=== PATIENT | female | born 1990 | race Caucasian/White ===

== ENCOUNTER 2020-09-30 20:46 | Emergency (ER) | payer SELFPAY ==
[~2020-09-30] VITALS: Ht 167.6 cm; Wt 52.3 kg
[2020-09-30 20:55] VITALS: BP 114/81
[2020-09-30] MEDS ORDERED: HYDROcodone/APAP 5/325MG 1 TAB TABLET PO ONE (21:00)
--- NOTE | 2020-09-30 21:18 | PHYS DOC ---
General Adult EDM: Chief Complaint: HAND PROBLEM HPI: HPI: Patient is a 29-year-old female being seen in the ER today for a right hand injury. Patient reports that her great Justin's are running towards her and she moved her hand out of the way and hit it on the spindle of her bed. Patient is rating her pain 10 out of 10. No radiation of pain. She reports that most of her pain is located on the ulnar aspect of her right hand and wrist. Patient reports decreased range of motion due to pain. Patient denies any decreased sensation to extremity. (YAZ GARCIA APRN) Review of Systems: Review of Systems: 14 body systems of the review of systems have been reviewed. See HPI for pertinent positive and negative responses, otherwise all other systems are negative, nonpertinent or noncontributory (YAZ GARCIA APRN) Current Medications: Current Meds: Current Medications Medications (Trade) Dose Ordered Sig/Aliyah Start Time Stop Time Status Last Admin Dose Admin Acetaminophen/ Hydrocodone Bitart (Lortab 5/325) 1 tab 1X ONCE 09/30/20 21:00 09/30/20 21:07 DC (YAZ GARCIA APRN) Allergies: Allergies: Allergies Coded Allergies Type Severity Reaction Last Updated Verified No Known Drug Allergies 09/30/20 No (YAZ GARCIA APRN) Physical Exam: PE: Constitutional: Well developed, well nourished, no acute distress, non-toxic appearance. [] HENT: Normocephalic, atraumatic Eyes: PERRL, EOMI, conjunctiva normal, no discharge. [] Neck: Normal range of motion, no tenderness, supple, no stridor. [] Cardiovascular: Normal peripheral perfusion Lungs & Thorax: Normal work of breathing, no tachypnea Skin: Warm, dry, no erythema, no rash. [] Back: Normal range of motion Extremities: No tenderness, no cyanosis, no clubbing, ROM intact, no edema. Right hand: Swelling noted to the ulnar aspect of right hand, ecchymosis noted to the palmar aspect of right hand, decreased range of motion due to pain, neuro intact [] Neurologic: Alert and oriented X 3, normal motor function, normal sensory func tion, no focal deficits noted. [] Psychologic: Affect normal, judgement normal, mood normal. [] (YAZ GARCIA APRN) EKG: EKG: [] (YAZ GARCIA APRN) Radiology/Procedures: Radiology/Procedures: [] (YAZ GARCIA APRN) Radiology/Procedures: PROCEDURE: XR HAND_RIGHT 3 VIEWS, XR RT WRIST 3VIEWS History: Injury. Hand and wrist pain and swelling. Comparison: None. Technique: 3 views of the right hand. 3 views of the right wrist. Findings: Osseous mineralization is normal. There is a comminuted intra-articular fracture at the base of the fifth metacarpal. Mild apex dorsal angulation. No significant degenerative changes. Soft tissue swelling in the ulnar aspect of the hand. Impression: 1. Comminuted intra-articular fracture base of the fifth metacarpal. Electronically signed by: Mekhi Clay MD (09/30/2020 9:58 PM) [facility] (MELISA OLSEN DO) Heart Score: C/O Chest Pain: No Risk Factors: Risk Factors: DM, Current or recent (<one month) smoker, HTN, HLP, family history of CAD, obesity. Risk Scores: Score 0 - 3: 2.5% MACE over next 6 weeks - Discharge Home Score 4 - 6: 20.3% MACE over next 6 weeks - Admit for Clinical Observation Score 7 - 10: 72.7% MACE over next 6 weeks - Early Invasive Strategies (YAZ GARCIA APRN) Course & Med Decision Making: Course & Med Decision Making Pertinent Labs and Imaging studies reviewed. (See chart for details) Patient is a 29-year-old female being seen in the ER for right hand and wrist injury. An x-ray was performed of the wrist and hand and it showed right fifth metacarpal. Patient's hand placed in an ulnar gutter splint and sling applied. Patient neurovascularly intact pre and post splint placement. Patient tolerated splint placement procedure. Patient treated in the ER with pain medication. Patient advised to follow-up with an orthopedic doctor within the week. Patient advised to take Tylenol/ibuprofen for pain. Patient educated on the rice protocol. I discussed with patient all findings and diagnostic testing as well as the need to follow-up with PCP for further evaluation and treatment or return to the ER if any new or worsening symptoms. Strict return precautions were also discussed at length. Patient voiced understanding and agreement with the plan. Patient is hemodynamically stable at the time of disposition. (YAZ GARCIA APRN) Dragon Disclaimer: Dragon Disclaimer: This electronic medical record was generated, in whole or in part, using a voice recognition dictation system. (YAZ GARCIA APRN) Departure Departure: Impression: Primary Impression: Hand fracture, right Qualified Codes: S62.91XA - Unspecified fracture of right wrist and hand, initial encounter for closed fracture Disposition: HOME / SELF CARE / HOMELESS Condition: GOOD Referrals: PCP,NO (PCP) Patient Instructions: Hand Fracture, Metacarpals, RICE - Routine Care for Injuries Additional Instructions: You were seen in the ER today for a fracture or broken bone. You had a splint placed to help with pain and healing. You will need to follow-up with the orthopedic doctors in the orthopedic clinic as soon as possible. Please call an orthopedic doctor in the morning to set up a follow-up appointment. If you do not have a orthopedic doctor, you can always follow-up with orthopedic group at [facility]. You can call [phone] to set up an appointment. You should perform range of motion exercises to prevent stiffness of your joints. Splints help with the pain and can promote healing but immobility can cause chronic pain over time. Please refer to these attached instructions regarding range of motion exercises. Keep the splint clean and dry avoid getting it wet. If the splint gets wet you will need to have it replaced. You should use ice and elevation to help with the swelling and pain. For the first 24 hours apply ice 20 minutes on 20 minutes off 4 times per day. Ensure that ice is in a plastic bag as to not get the splint wet. You may take NSAID medications (Tylenol, ibuprofen, naproxen) to help with the pain. Please return to the emergency department if you develop any of the following symptoms: Increasing pain that does not improve with treatments. New numbness or tingling Warmth, redness, skin discoloration, skin breakdown, drainage from under splint or near splinted area. Increasing inability to move your extremity or digits. Foul odor coming from splint Fevers or chills Nausea or vomiting Persistent lightheadedness We would be happy to see you for any other concerning symptoms regarding your splinted extremity. Scripts Hydrocodone Bit/Acetaminophen (HYDROCODONE-APAP 5-325 ) 1 Each Tablet 1 TAB PO PRN Q6HRS PRN for PAIN for 2 Days, #8 TAB 0 Refills Prov: YZA GARCIA APRN 09/30/20 Attending Signature Attending Signature I have reviewed the PA/THERAPEUTIC MENTOR's note and plan of care. I was available for consultation as needed during the patient's visit in the emergency department. I agree with the clinical impression, plan, and disposition. (MELISA OLSEN DO) YAZ GARCIA APRN Sep 30, 2020 21:18 MELISA OLSEN DO Sep 30, 2020 22:07
[2020-09-30] MEDS ORDERED: HYDR-2155 PO (21:56)
--- NOTE | 2020-09-30 22:00 | RAD ---
XR HAND_RIGHT 3 VIEWS, XR RT WRIST 3VIEWS History: Injury. Hand and wrist pain and swelling. Comparison: None. Technique: 3 views of the right hand. 3 views of the right wrist. Findings: Osseous mineralization is normal. There is a comminuted intra-articular fracture at the base of the f ifth metacarpal. Mild apex dorsal angulation. No significant degenerative changes. Soft tissue swelli ng in the ulnar aspect of the hand. Impression: 1. Comminuted intra-articular fracture base of the fifth metacarpal. Electronically signed by: Mekhi Clay MD (09/30/2020 9:58 PM) [facility]
== END 2020-09-30 22:02 | disposition home or self-care (01) ==
LOC: ER 20:46
DX: S62.316A Displaced fracture of base of fifth metacarpal bone, right hand, initial encounter for closed fracture (principal); W22.8XXA Striking against or struck by other objects, initial encounter; Y93.89 Activity, other specified; Y92.89 Other specified places as the place of occurrence of the external cause; Y99.8 Other external cause status
CPT/HCPCS: 29125; 73110; 73130; 99284